=== PATIENT | female | born 1990 | race African-American/Black ===

== ENCOUNTER → 2016-06-29 | Outpatient (CLI) | payer MEDICAID, OTHER, SELFPAY ==
--- NOTE | 2016-06-29 15:00 | REP ---
OBSTETRIC SONOGRAPHY: HISTORY: Supervision of for anatomy. FINDINGS: Scanning through the gravid uterus demonstrates a viable single intrauterine gestation in a cephalic lie. motion is observed and heart rate is recorder 141 beats per minute. A posterior grade 0 placenta is seen without evidence of previa or abruption. Amniotic fluid is subjectively normal. Closed cervical length is 3.1 cm. No extrauterine abnormality is observed. There is an echogenic focus in the left ventricle likely chordae tendineae. Left ventricular cardiac outflow tract view is less than optimally seen as is four-chamber heart view. The following additional anatomic structures are identified and felt to be sonographically unremarkable: cranium, choroid plexus, cavum, cerebellum and posterior fossa, face and profile, lungs, right ventricular cardiac outflow tract view, diaphragm, left-sided stomach, abdominal wall cord insertion, three-vessel umbilical cord, kidneys and bladder, spine, upper and lower extremities. Biometry Chart: BPD 4.5 cm = 19 weeks 4 days HC 16.7 cm = 19 weeks 3 days AC 14.3 cm = 19 weeks 4 days FL 3.3 cm = 20 weeks 2 days HL 3.1 cm = 20 weeks 3 days CD 2.1 cm = 20 weeks 0 days HC/AC ratio normal 1.17. Cephalic index normal 0.74. Estimated weight 317 grams 0 pounds 11 ounces , 52nd percentile for 19 weeks 5 days. IMPRESSION: Viable single intrauterine gestation 19 week 6 days by today's composite sonographic criteria. DEVEN by today's sonography November 17, 2016. There is an echogenic focus in the left ventricle. Four chamber heart and left ventricular outflow tract views are less than optimally seen. The umbilical cord is seen draping across the shoulders. Signed by Abad Craft MD 06/29/2016 05:13 P
== END | disposition home or self-care (01) ==
LOC: M RAD 13:13
PROVIDERS: ATTEND Obstetrics & Gynecology
DX: Z34.82 Encounter for supervision of other normal pregnancy, second trimester (principal); Z36 Encounter for antenatal screening of mother; Z3A.19 19 weeks gestation of pregnancy

== ENCOUNTER → 2016-07-20 | Outpatient (CLI) | payer MEDICAID, OTHER, SELFPAY ==
--- NOTE | 2016-07-20 13:19 | REP ---
Clinical: Anatomical evaluation. Comparison: 06/29/2016 . Findings: Examination demonstrates a single live intrauterine in cephalic presentation. motion is identified by technologist. Placenta is noted posterior and grade zero without evidence for placenta previa or abruption. Amniotic fluid volume is normal. Cervix measures 2.9 cm in length and appears closed. No evidence for nuchal cord. Gestational age by LMP 22 weeks 5 days with DEVEN 11/18/2016 . Gestational age by current measurements 23 weeks 0 days with DEVEN 11/16/2016 . FHR equals 150 beats per minute. Estimated weight 587 grams (66 percentile). Anatomical assessment demonstrates normal structures including cranium, choroid plexus, cavum, cerebellum/posterior fossa, facial features, lungs, four-chamber heart/ventricular outflow tracts, diaphragm, stomach, cord insertion/three-vessel cord, kidneys/bladder, spine, and extremities. Echogenic focus within the left cardiac ventricle likely prominent chordae tendineae. Impression: Single live intrauterine in cephalic presentation demonstrating appropriate interval growth. Prominent chordae tendineae. Anatomical assessment is otherwise complete and normal. Signed by Wilber Ng MD 07/20/2016 01:10 P
== END ==
LOC: M RAD 11:42
PROVIDERS: ATTEND Obstetrics & Gynecology
DX: Z36 Encounter for antenatal screening of mother (principal); Z3A.23 23 weeks gestation of pregnancy

== ENCOUNTER → 2016-08-14 | Outpatient (CLI) | payer OTHER ==
[2016-08-14 16:26] LABS: MEAN CORPUSCULAR HEMOGLOBIN 29.6 pg (27.0-33.0); MEAN CORPUSCULAR HGB CONC 33.6 g/dl (32.0-36.5); RED CELL DISTRIBUTION WIDTH 12.2 % (11.5-14.5); WHITE BLOOD COUNT 10.1 K/mm3 (4.0-10.0)
== END ==
LOC: M LAB 12:54
PROVIDERS: ATTEND Obstetrics & Gynecology
DX: Z34.82 Encounter for supervision of other normal pregnancy, second trimester (principal); Z36 Encounter for antenatal screening of mother; Z3A.00 Weeks of gestation of pregnancy not specified

== ENCOUNTER 2016-10-09 00:42 | Inpatient (IN) | payer OTHER ==
[2016-10-09] VITALS (13 sets, daily range): BP systolic 117–139; BP diastolic 61–81
[2016-10-09] MEDS ORDERED: PENICILLIN G POTASSIUM IV 5 MU in D5W MINI-BAG PLUS 100 ML IV STA (01:28)
--- NOTE | 2016-10-09 02:05 | HPEPDOC ---
Obstetrical History & Physical General Date of Admission October 09, 2016 at 01:27 Primary Care Physician: DARLEEN MORROW CNM History of Present Illness Patient is a 25-year-old female who is a at 34 weeks 1 day gestation with an DEVEN of 11/08/2016 based off a first trimester ultrasound consistent with her LMP. She initiated care in her first trimester at [facility]. Her has been uncomplicated. She did have a lagging care between 15 seen weeks and 23 weeks where she wasn't seen due to insurance issues. She presents to labor and delivery tonight with complaints of leaking of fluid. She reports his occurred at 2230 on 10/08/2016. Patient reports this fluid is clear. Denies vaginal bleeding. Reports active movement. Chief Complaint: LOF, pre-term Information Provided By: Patient Age: 25 : 1 Livin Care Care: Good Care Number of Visits: 8 Dating Final EDC: Nov 08, 2016 Final EDC by: 1st trimester (US) LMP: Feb 06, 2016 EGA at Admission: 34.1 Antepartum Course Height (inches): 59 Pre- weight (lbs.): 152 Admission Weight (lbs.): 155 Change in Weight (lbs.): 3 (patient lost 10 lbs in the begining of her ) Past Medical History Past Medical History Medical History No current problems Surgical History: Denies/None Family History Significant Family History: Asthma, Cancer, Diabetes, Heart disease, Hypertension, Hyperlipidemia Social History Marital Status: Single Family situation: Spouse/partner home Psychosocial History: No pertinent psych hx * Smoker: non-smoker Alcohol: Denies Drugs: denies Abuse Violence Screening Have you been hit/kicked/slapp: No Have you been sexually assault: No Imunizations Tdap status: current Allergies Coded Allergies: No Known Drug Allergy (Verified Allergy, Unknown, 10/09/16) Physical Examination Physical Examination GENERAL: Alert and oriented times three. BREAST: . ABDOMEN: Gravid and non-tender to touch. FETUS: Is vertex (VTX) by sterile vaginal examination (SVE), fetus is vertex ( VTX) by Devan. HEART RATE: Regular rate and rhythm. LUNGS: Clear to auscultation (CTA). EXTREMITIES: No edema. : Moderate amount of clear fluid leaking from introitus. Sterile speculum exam with pooling. Nitrazine positive. Other physical findings A bedside ultrasound done confirming cephalic presentation. Largest vertical pocket of fluid noted to be 3.8. Pertinent Laboratoy Data Blood Type: A+ RBC Antibody Screen: Negative HIV: Negative Hepatitis B: Negative Rapid Plasma Reagin: Nonreactive Rubella: Immune Chlamydia/Gonorrhea: Negative Group B Streptococcus: Negative Quad Screen Test: Declined Glucose Tolerance Test: 98 Anatomy Ultrasound Ultrasound Date: Jul 20, 2016 Normal Anatomy: Yes Placenta Previa: No Vaginal Examination Dilation: None Effacement: Other (50%) Cervical Consistency: Soft Cervical Position: Anterior Presentation: Cephalic presentation Position: Vertex (occiput) Assessment Heart Rate (FHR): 140 Variability: Moderate Accelerations: Positive Decelerations: None Tocometer Contractions: Yes Frequency: other (occassional) Multi-drug resistant Organism: No history of MDRO Assessment/Plan Assessment IUP at 34 weeks 1 day gestation PPROM GBS unknown Category 1 heart rate tracing Plan Admit to labor and delivery. Dr. Calderon consulted for plan of care. Saline lock ordered per protocol. Labs per protocol. GBS obtained. Regular diet. Betamethasone intramuscular injection ordered for now and again in 24 hours. Penicillin to be started for GBS prophylaxis. Reviewed potential risks to mom and baby associated with delivering a baby with family. Plan of care reviewed with family that are necessary to decrease risks for adverse outcomes. DARLEEN MORROW CNM October 09, 2016 02:02
[2016-10-09] MEDS: BETAMETHASONE SOLUSPAN 6MG/ML INJ 5ML (J0702) IM SCH (02:10)
[2016-10-09 02:15] LABS: MEAN CORPUSCULAR HEMOGLOBIN 26.7 pg (27.0-33.0); MEAN CORPUSCULAR HGB CONC 32.1 g/dl (32.0-36.5); MEAN CORPUSCULAR VOLUME 83.2 fl (80.0-96.0); RED CELL DISTRIBUTION WIDTH 13.4 % (11.5-14.5); WHITE BLOOD COUNT 10.9 K/mm3 (4.0-10.0)
[2016-10-09] MEDS: PENICILLIN G POTASSIUM IV 2.5 MU in D5W 100 ML IV SCH ×5 (05:59→22:06)
[2016-10-09] MEDS ORDERED: OXYTOCIN 30 UNITS IN 0.9% NaCl 500ML IV BAG (J2590) As Ordered ONE (16:23)
--- NOTE | 2016-10-09 18:31 | REP ---
OB ULTRASOUND: REASON: Reason assess amniotic fluid. Multiple ultrasonographic images of the gravid uterus show a single living intrauterine gestation in the cephalic presentation. Doppler interrogation of the heart shows a heart rate of 132 beats per minute. The subjective aminotic fluid volume is decreased. The calculated amniotic fluid index is 4.1 within expected range of 8.0 -24.8. Doppler interrogation of the umbilical arteries shows an AB ratio of 3.02. This is just outside the upper limit of normal which is 3.00. IMPRESSION: Limited OB ultrasound as described above. There is evidence of oligohydramnios. Signed by Silvano Vasquez DO 10/09/2016 07:20 P
[2016-10-09] MEDS ORDERED: miSOPROStol 50 MCG 1/2 TAB (S0191) PO SCH ×2 (18:45)
[2016-10-09] MEDS ORDERED: TERBUTALINE SULFATE 1 MG/ML VIAL (J3105) As Ordered ONE (19:15)
[2016-10-09] MEDS ORDERED: ONDANSETRON 4MG/2ML VIAL (J2405) As Ordered ONE (23:39)
[2016-10-09] MEDS ORDERED: ONDANSETRON 4MG/2ML VIAL (J2405) IV ONE (23:45)
[2016-10-09] MEDS ORDERED: PROMETHAZINE INJ 25 MG/ML VIAL (J2550) IV PRN (23:45)
[2016-10-09] MEDS ORDERED: BUTORPHANOL 2 MG/ML INJ (J0595) IV PRN (23:45)
[2016-10-10] VITALS (23 sets, daily range): BP systolic 102–173; BP diastolic 53–77
[2016-10-10] MEDS ORDERED: FENTANYL 2MCG/ML ROPIVACAINE 0.2% IN 0.9% NACL 200ML IVBAG As Ordered ONE (00:02)
[2016-10-10] MEDS ORDERED: EPIDURAL/PCA KEYS XX PRN (00:35)
[2016-10-10] MEDS ORDERED: NALOXONE INJ 0.4 MG/1 ML VIAL (J2310) IV PRN (00:35)
[2016-10-10] MEDS ORDERED: REFRIGERATOR IV KEYS XX PRN (00:35)
[2016-10-10] MEDS ORDERED: EPIDURAL COMMENT XX SCH (00:35)
[2016-10-10] MEDS ORDERED: FENTANYL/ROPIVACAINE/NACL BAG 200 ML EPIDURAL SCH (00:35)
[2016-10-10] MEDS ORDERED: diphenhydrAMINE INJ 50MG/ML VIAL (J1200) IV PRN (00:35)
[2016-10-10] MEDS ORDERED: LACTATED RINGER'S 1000 ML IV PRN (00:35)
[2016-10-10] MEDS ORDERED: ONDANSETRON 4MG/2ML VIAL (J2405) IV PRN (00:35)
[2016-10-10] MEDS ORDERED: ePHEDrine SULFATE 25 MG/5 ML(5MG/ML) SYRINGE IV PRN (00:35)
[2016-10-10] MEDS: PENICILLIN G POTASSIUM IV 2.5 MU in D5W 100 ML IV SCH ×2 (01:44→06:03)
[2016-10-10] MEDS: BETAMETHASONE SOLUSPAN 6MG/ML INJ 5ML (J0702) IM SCH (01:45)
[2016-10-10] MEDS ORDERED: LR 1,000 ML IV SCH (05:24)
[2016-10-10] MEDS ORDERED: TERBUTALINE SULFATE 1 MG/ML VIAL (J3105) SC ONE (05:30)
[2016-10-10] MEDS ORDERED: OXYTOCIN DRIP 30 UNITS in APPROPRIATE DILUENT 1 EA IV SCH ×2 (05:30→08:16)
[2016-10-10 06:20] LABS: BASO % 0.1 % (0.0-1.0); EOS # 0.2 K/mm3 (0.0-0.50); EOS % 1.6 % (0.0-3.0); LARGE UNSTAINED CELL # 0.1 K/mm3 (0.0-0.4); LARGE UNSTAINED CELL % 0.4 % (0.0-4.0); LYMPH # 1.2 K/mm3 (1.5-6.5); LYMPH % 7.9 % (24.0-44.0); MEAN CORPUSCULAR HEMOGLOBIN 27.7 pg (27.0-33.0); MEAN CORPUSCULAR HGB CONC 32.4 g/dl (32.0-36.5); MEAN CORPUSCULAR VOLUME 85.4 fl (80.0-96.0); MONO # 0.5 K/mm3 (0.0-0.8); MONO % 2.9 % (0.0-5.0); NEUTROPHILS # 13.4 K/mm3 (1.8-7.7); NEUTROPHILS % 87.1 % (36.0-66.0); PLATELET COUNT, AUTOMATED 192 k/mm3 (150-450); RED CELL DISTRIBUTION WIDTH 13.4 % (11.5-14.5); WHITE BLOOD COUNT 15.4 K/mm3 (4.0-10.0)
--- NOTE | 2016-10-10 06:25 | IPNPDOC ---
Date Seen The patient was seen on 10/10/16 at 0530. Progress Note SUBJECTIVE: Patient is comfortable with her epidural. OBJECTIVE: FHR: 140, moderate variability, positive accelerations, no decelerations. Contractions every 1 to 5 minutes. There have been occasional episodes of prolonged decelerations randomly noted from 2 to 5 minutes that return to baseline with moderate variability and accelerations to follow. Patient had a moderate amount of bloody show. VITAL SIGNS: Please see below. ASSESSMENT: IUP at 34 weeks 3 days gestation, PPROM, Category I FHR tracing, GBS unknown. PLAN: Continue with GBS prophylaxis. Pitocin ordered with consent. Anticipate cervical change and . VS, I&O, 24H, Fishbone Vital Signs/I&O Vital Signs Date Time Temp Pulse Resp B/P (MAP) Pulse Ox O2 Delivery O2 Flow Rate FiO2 10/10/16 01:40 98.5 95 16 113/70 (84) Laboratory Data Microbiology Microbiology 10/09/16 Group B Streptococcus Screen (MARJAN), Received Pending DARLEEN MORROW CNM October 10, 2016 06:19
--- NOTE | 2016-10-10 08:15 | DNPDOC ---
[facility] Delivery Note Delivery Note Mikki is a 25-year-old now G 1 P 0101 at 34.3 weeks' gestation who presented to labor and delivery on 08/08/16 with spontaneous rupture of membranes at 2230. She received betamethasone x2 doses and GBS prophylaxis prior to delivery. She had 2 doses of cytotec and 4 mu of Pitocin. She obtained an epidural for pain management. She progressed to fully dilated at 0712. [employer] notified. Patient pushed to a spontaneous vaginal delivery at 0727 to a living female in the OA position with restitution to JASWINDER. Shoulders delivered with ease and the corpus immediately followed. Baby placed on maternal abdomen active and crying. Cord clamped 2 and cut by the father of the baby. Spontaneous delivery of intact placenta with a three-vessel cord by Campbell mechanism at 0732. Uterine hemostasis achieved by rapid infusion of IV Pitocin and uterine fundal massage. The placenta was sent to pathology due to size and PPROM. Perineum and vagina inspected and found to have bilateral labial lacerations with the right side repaired with a 4. 0 Vicryl Rapide. EBL 200. 's 8/9. Weight 4 lbs. 2 oz., 1864 g. 's name is Bina and mom is . was taken to the NICU in stable condition. DARLEEN MORROW CNM October 10, 2016 08:15
[2016-10-10] MEDS ORDERED: ACETAMINOPHEN 500 MG TAB PO PRN (08:30)
[2016-10-10] MEDS ORDERED: MEASLES,MUMPS,RUBELLA VACCINE INJ (MMR-II) (90707) SC SCH (08:30)
[2016-10-10] MEDS ORDERED: METHYLERGONOVINE MALEATE 0.2 MG TAB PO PRN (08:30)
[2016-10-10] MEDS ORDERED: DOCUSATE SODIUM 100 MG CAP PO PRN (08:30)
[2016-10-10] MEDS ORDERED: ANUSOL HC CREAM 30GM TOP PRN (08:30)
[2016-10-10] MEDS ORDERED: DIBUCAINE 1% OINTMENT 30GM TOP PRN (08:30)
[2016-10-10] MEDS ORDERED: RHOGAM 300 MCG (1500 IU) INJ (J2790) IM SCH (08:30)
[2016-10-10] MEDS ORDERED: IBUPROFEN 800 MG TAB PO PRN (08:30)
[2016-10-10] MEDS: PRENATAL VITAMIN TAB PO SCH (09:18)
[2016-10-11 06:20] VITALS: BP 129/78
[2016-10-11] MEDS: PRENATAL VITAMIN TAB PO SCH (10:27)
[2016-10-11 18:42] VITALS: BP 131/74
[2016-10-12 06:10] VITALS: BP 122/71
[2016-10-12] MEDS ORDERED: PRENTAB9 PO (11:59)
[2016-10-12] MEDS ORDERED: ACET50TA PO (12:00)
[2016-10-12] MEDS ORDERED: IBUP-1114 PO (12:02)
== END 2016-10-12 15:00 | disposition home or self-care (01) | DRG 560 ==
LOC: M LDO 00:42 → M LDI 01:27 → M OBS 10-10 11:50
PROVIDERS: ADMIT Obstetrics & Gynecology; ATTEND Advanced Practice Midwife
PROC: 10E0XZZ Delivery of Products of Conception, External Approach (ICD-10-PCS; principal; 2016-10-10)
PROC: 0HQ9XZZ Repair Perineum Skin, External Approach (ICD-10-PCS; 2016-10-10)
DX: O42.013 Preterm premature rupture of membranes, onset of labor within 24 hours of rupture, third trimester (principal); O70.0 First degree perineal laceration during delivery; Z3A.34 34 weeks gestation of pregnancy; Z37.0 Single live birth

== ENCOUNTER → 2018-12-22 | Outpatient (REF) | payer MEDICAID ==
[~2018-12-22] MED LIST: IBUP-1114 PO; MAPA500T2 PO; PRENTAB9 PO
[2018-12-22 17:18] LABS: HEMATOCRIT 38.2 % (36.0-47.0); HEMOGLOBIN 12.7 g/dl (12.0-15.5); MEAN CORPUSCULAR HEMOGLOBIN 28.8 pg (27.0-33.0); MEAN CORPUSCULAR HGB CONC 33.2 g/dl (32.0-36.5); MEAN CORPUSCULAR VOLUME 86.6 fl (80.0-96.0); PLATELET COUNT, AUTOMATED 241 10^3/uL (150-450); RED BLOOD COUNT 4.41 10^6/uL (4.00-5.40); WHITE BLOOD COUNT 8.4 10^3/uL (4.0-10.0)
[2018-12-22 20:16] LABS: HCG, SERUM QUANTITATIVE 88500 MIU/ML
[2018-12-23 09:29] LABS: RUBELLA IgG QUALITATIVE IMMUNE (IMMUNE)
[2018-12-23 09:58] LABS: HEPATITIS C VIRUS ABY INDEX 0.1 INDEX (<0.8); HIV 1&2 SCREEN CENTAUR NEGATIVE (NEGATIVE)
== END ==
LOC: M LAB REF 16:51
PROVIDERS: ATTEND Obstetrics & Gynecology
DX: O36.80X0 Pregnancy with inconclusive fetal viability, not applicable or unspecified (principal); Z32.01 Encounter for pregnancy test, result positive

== ENCOUNTER 2018-12-30 21:37 | Emergency (ER) | payer MEDICAID ==
[~2018-12-30] VITALS: Ht 149.9 cm; Wt 75.0 kg
[2018-12-30 22:12] LABS: BASO % 0.3 % (0.0-1.0); EOS % 0.4 % (0.0-3.0); HEMATOCRIT 40.8 % (36.0-47.0); HEMOGLOBIN 13.6 g/dl (12.0-15.5); LYMPH # 3.3 10^3/uL (1.5-6.5); LYMPH % 31.1 % (24.0-44.0); MEAN CORPUSCULAR HEMOGLOBIN 29.3 pg (27.0-33.0); MEAN CORPUSCULAR HGB CONC 33.3 g/dl (32.0-36.5); MEAN CORPUSCULAR VOLUME 87.9 fl (80.0-96.0); MONO # 0.9 10^3/uL (0.0-0.8); MONO % 8.9 % (0.0-5.0); NEUTROPHILS # 6.2 10^3/uL (1.8-7.7); NEUTROPHILS % 58.9 % (36.0-66.0); PLATELET COUNT, AUTOMATED 307 10^3/uL (150-450); RED BLOOD COUNT 4.64 10^6/uL (4.00-5.40); WHITE BLOOD COUNT 10.5 10^3/uL (4.0-10.0)
[2018-12-30 22:35] LABS: ALBUMIN 3.6 GM/DL (3.2-5.2); ALT/SGPT 59 U/L (12-78); BILIRUBIN,DIRECT 0.2 MG/DL (0.0-0.2); BILIRUBIN,TOTAL 0.5 MG/DL (0.2-1.0); BLOOD UREA NITROGEN 9 MG/DL (7-18); CARBON DIOXIDE LEVEL 25 MEQ/L (21-32); CHLORIDE LEVEL 104 MEQ/L (98-107); CREATININE FOR GFR 0.68 MG/DL (0.55-1.30); GLOMERULAR FILTRATION RATE > 60.0 (>60); GLUCOSE, FASTING 87 MG/DL (70-100); LIPASE 73 U/L (73-393); POTASSIUM SERUM 3.6 MEQ/L (3.5-5.1); SODIUM LEVEL 137 MEQ/L (136-145); TOTAL PROTEIN 7.5 GM/DL (6.4-8.2)
[2018-12-31 00:54] VITALS: BP 139/84
[2018-12-31] MEDS ORDERED: AUGM875T28 PO (00:57)
[2018-12-31] MEDS ORDERED: ZOFR4TAB16 PO (00:57)
[2018-12-31] MEDS ORDERED: ONDANSETRON 4 MG ORAL DISINTEGRATING TAB (Q0162 PER 1MG) PO ONE (01:00)
== END 2018-12-31 01:06 | disposition home or self-care (01) ==
LOC: M ED 21:37
DX: O23.11 Infections of bladder in pregnancy, first trimester (principal); O21.9 Vomiting of pregnancy, unspecified; O99.611 Diseases of the digestive system complicating pregnancy, first trimester; Z3A.11 11 weeks gestation of pregnancy; Z79.899 Other long term (current) drug therapy
CPT/HCPCS: 80048; 80076; 81001; 83690; 85025; 87086; 99284; Q0162

== ENCOUNTER → 2019-02-14 | Outpatient (REF) | payer MEDICAID ==
[~2019-02-14] MED LIST changes: +AUGM875T28 PO; +ZOFR4TAB16 PO
== END ==
LOC: M LAB REF 12:42
PROVIDERS: ATTEND Obstetrics & Gynecology
DX: Z34.82 Encounter for supervision of other normal pregnancy, second trimester (principal)

== ENCOUNTER → 2019-03-15 | Outpatient (REF) | payer OTHER | LOC: M LAB REF 16:15 | PROVIDERS: ATTEND Nurse Practitioner Women's Health | DX: Z34.82 Encounter for supervision of other normal pregnancy, second trimester (principal); Z3A.00 Weeks of gestation of pregnancy not specified ==

== ENCOUNTER → 2019-05-15 | Outpatient (CLI) | payer MEDICAID, OTHER ==
[2019-05-15 15:00] LABS: HEMATOCRIT 33.5 % (36.0-47.0); HEMOGLOBIN 10.9 g/dl (12.0-15.5); MEAN CORPUSCULAR HEMOGLOBIN 27.7 pg (27.0-33.0); MEAN CORPUSCULAR HGB CONC 32.5 g/dl (32.0-36.5); PLATELET COUNT, AUTOMATED 205 10^3/uL (150-450); RED BLOOD COUNT 3.94 10^6/uL (4.00-5.40); WHITE BLOOD COUNT 10.3 10^3/uL (4.0-10.0)
== END ==
LOC: M LAB 13:23
PROVIDERS: ATTEND Obstetrics & Gynecology
DX: Z34.82 Encounter for supervision of other normal pregnancy, second trimester (principal)

== ENCOUNTER 2020-04-26 19:39 | Emergency (ER) | payer OTHER ==
[~2020-04-26] VITALS: Ht 149.9 cm; Wt 74.1 kg
[2020-04-26] MEDS ORDERED: ESCI20TA PO (19:50)
[2020-04-26 21:31] LABS: BASO # 0.1 10^3/uL (0.0-0.2); BASO % 0.4 % (0.0-1.0); LYMPH # 1.3 10^3/uL (1.5-5.0); LYMPH % 8.3 % (24.0-44.0); MEAN CORPUSCULAR HGB CONC 31.7 g/dl (32.0-36.5); MEAN CORPUSCULAR VOLUME 85.1 fl (80.0-96.0); MONO # 0.9 10^3/uL (0.0-0.8); MONO % 5.5 % (0.0-5.0); NEUTROPHILS # 13.7 10^3/uL (1.5-8.5); NEUTROPHILS % 85.4 % (36.0-66.0); PLATELET COUNT, AUTOMATED 332 10^3/uL (150-450); RED BLOOD COUNT 4.82 10^6/uL (4.00-5.40)
[2020-04-26 21:47] LABS: BILIRUBIN,DIRECT 0.2 MG/DL (0.0-0.2); BILIRUBIN,TOTAL 0.4 MG/DL (0.2-1.0); TOTAL PROTEIN 7.9 GM/DL (6.4-8.2)
--- NOTE | 2020-04-26 22:30 | REPVR ---
PROCEDURE INFORMATION: Exam: XR Abdomen, 1 View Exam date and time: 04/26/2020 9:51 PM Age: 29 years old Clinical indication: Abdominal pain; Additional info: ? Constipation TECHNIQUE: Imaging protocol: XR of the abdomen. Views: Frontal supine view of the abdomen. 1 View. COMPARISON: No relevant prior studies available. FINDINGS: Gastrointestinal tract: Moderate colonic fecal load. No dilated small bowel loops. Bones/joints: Unremarkable. IMPRESSION: Moderate colonic fecal load. Clinical correlation with constipation. Electronically signed by: Jose Antonio Schafer On 04/26/2020 22:30:22 PM
[2020-04-26] MEDS ORDERED: MAGNESIUM CITRATE 300 ML BTL PO ONE (22:45)
[2020-04-26] MEDS ORDERED: GLYCERIN ADULT SUPP PR ONE (22:45)
[2020-04-27] MEDS ORDERED: MIRA3350 PO (00:15)
[2020-04-27] MEDS ORDERED: PYRI1TAB5 PO (00:15)
[2020-04-27] MEDS ORDERED: POTASSIUM CHLORIDE 10 MEQ SR TABLET PO ONE (00:15)
[2020-04-27] MEDS ORDERED: NITROFURANTOIN (MACROBID) 100 MG CAP PO ONE (00:15)
[2020-04-27] MEDS ORDERED: COLA100C5 PO (00:15)
[2020-04-27] MEDS ORDERED: MACR100C43 PO (00:15)
[2020-04-27 00:27] VITALS: BP 158/74
== END 2020-04-27 00:36 | disposition home or self-care (01) ==
LOC: M ED 19:39
DX: K59.00 Constipation, unspecified (principal); N30.90 Cystitis, unspecified without hematuria; E87.6 Hypokalemia; F33.9 Major depressive disorder, recurrent, unspecified; E66.9 Obesity, unspecified; Z79.899 Other long term (current) drug therapy

== ENCOUNTER → 2021-02-18 | Outpatient (REF) | payer OTHER ==
[~2021-02-18] MED LIST changes: +COLA100C5 PO; +ESCI20TA16 PO; +MACR100C43 PO; +MIRA3350 PO; +PYRI1TAB5 PO
== END ==
LOC: M LAB REF 18:05
PROVIDERS: ATTEND Obstetrics & Gynecology
DX: O92.6 Galactorrhea (principal)

== ENCOUNTER → 2021-03-24 | Outpatient (CLI) | payer OTHER ==
[~2021-03-24] MED LIST changes: +PROHANCE 279.3MG/ML 5ML VIAL As Ordered ONE
--- NOTE | 2021-03-25 22:00 | REPVR ---
PROCEDURE INFORMATION: Exam: MR Head Without and With Contrast, Sella Exam date and time: 03/24/2021 4:10 PM Age: 30 years old Clinical indication: Other: O92.6 galactorrhea e22.1 hyperprolactinemia TECHNIQUE: Imaging protocol: MR of the head without and with intravenous contrast. Exam focused on the sella. Contrast material: PROHANCE; Contrast volume: 10 ml; Contrast route: INTRAVENOUS (IV); COMPARISON: No relevant prior studies available. FINDINGS: Brain: Normal appearance of the pituitary gland. The infundibulum is midline. The optic chiasm is normal. Cavernous sinuses are normal. No intracranial hemorrhage or extra-axial fluid collection. No evidence of mass effect or midline shift. No white matter abnormalities. No restricted diffusion to suggest acute infarct. Cerebral ventricles: Ventricles, cisterns, and sulci are normal. Paranasal sinuses: Small retention cyst in the left maxillary sinus. Bones/joints: Unremarkable. IMPRESSION: No acute intracranial findings. Normal appearance of the pituitary gland. Electronically signed by: Mj Chinchilla On 03/25/2021 22:00:23 PM
== END ==
LOC: M RAD 15:08
PROVIDERS: ATTEND Obstetrics & Gynecology
DX: O92.6 Galactorrhea (principal); E22.1 Hyperprolactinemia; O99.280 Endocrine, nutritional and metabolic diseases complicating pregnancy, unspecified trimester
CPT/HCPCS: 70553; A9576

== ENCOUNTER → 2022-01-06 | Outpatient (REF) | payer OTHER ==
[~2022-01-06] MED LIST changes: -PROHANCE 279.3MG/ML 5ML VIAL As Ordered ONE
[2022-01-06 21:33] LABS: APPEARANCE, URINE CLOUDY (CLEAR); BACTERIA, URINE AUTO 1+ (NEGATIVE); BILIRUBIN, URINE AUTO NEGATIVE (NEGATIVE); BLOOD, URINE BLOOD 2+ (NEGATIVE); COLOR, URINE YELLOW (YELLOW); GLUCOSE, URINE (UA) AUTO NEGATIVE (NEGATIVE); KETONE, URINE AUTO NEGATIVE (NEGATIVE); LEUKOCYTE ESTERASE, URINE AUTO 2+ (NEGATIVE); MUCUS, URINE SMALL (NEGATIVE); NITRITE, URINE AUTO POSITIVE (NEGATIVE); PROTEIN, URINE AUTO 1+ mg/dL (NEGATIVE); RBC, URINE AUTO 10 /HPF (0-3); SPECIFIC GRAVITY URINE AUTO 1.024 (1.002-1.035); SQUAMOUS EPITHELIAL CELL UR AU 10 /HPF (0-6); UROBILINOGEN, URINE AUTO 0.2 mg/dL (0.0-2.0); WBC, URINE AUTO 133 /HPF (0-3)
[2022-01-06 22:58] LABS: GC DNA AMPLIFICATION NEGATIVE (NEGATIVE)
== END ==
LOC: M LAB REF 21:15
PROVIDERS: ATTEND Physician Assistant
DX: N39.0 Urinary tract infection, site not specified (principal)

== ENCOUNTER → 2023-06-03 | Outpatient (REF) | payer OTHER, MEDICAID ==
[2023-06-03 17:04] LABS: HEMATOCRIT 39.6 % (36.0-47.0); HEMOGLOBIN 12.8 g/dl (12.0-15.5); MEAN CORPUSCULAR HEMOGLOBIN 27.9 pg (27.0-33.0); MEAN CORPUSCULAR HGB CONC 32.3 g/dl (32.0-36.5); MEAN CORPUSCULAR VOLUME 86.5 fl (80.0-96.0); PLATELET COUNT, AUTOMATED 368 10^3/uL (150-450); RED BLOOD COUNT 4.58 10^6/uL (4.00-5.40); WHITE BLOOD COUNT 9.4 10^3/uL (4.0-10.0)
[2023-06-03 18:05] LABS: HIV 1&2 SCREEN NEGATIVE (NEGATIVE)
[2023-06-03 18:13] LABS: HEPATITIS C VIRUS ABY INDEX 0.05 INDEX (<0.8)
[2023-06-03 19:38] LABS: HEMOGLOBIN A1c 5.2 % (4.0-6.0)
== END ==
LOC: M LAB REF 16:21
PROVIDERS: ATTEND Advanced Practice Midwife
DX: O36.80X0 Pregnancy with inconclusive fetal viability, not applicable or unspecified (principal); Z32.01 Encounter for pregnancy test, result positive

== ENCOUNTER → 2023-06-17 | Outpatient (CLI) | payer OTHER | LOC: M WHC 14:24 | PROVIDERS: ATTEND Obstetrics & Gynecology | DX: Z32.01 Encounter for pregnancy test, result positive (principal) ==

== ENCOUNTER 2023-12-22 08:42 | Inpatient (IN) | payer OTHER ==
[~2023-12-22] VITALS: Ht 149.9 cm; Wt 88.7 kg
[2023-12-22] VITALS (41 sets, daily range): BP systolic 74–170; BP diastolic 34–129
[2023-12-22] MEDS ORDERED: TUMS500C PO (09:06)
[2023-12-22] MEDS ORDERED: TRANEXAMIC ACID INJection 1,000 MG in NS 100 ML IV PRN (09:30)
[2023-12-22] MEDS ORDERED: OXYTOCIN DRIP 30 UNITS in IV 1 EA IV PRN (09:30)
[2023-12-22] MEDS ORDERED: CARBOPROST TROMETHAMINE 250 MCG/ML AMP IM PRN (09:30)
[2023-12-22] MEDS ORDERED: OXYTOCIN INJ 10UNITS/ML 1ML VIAL IM PRN (09:30)
[2023-12-22] MEDS ORDERED: METHYLERGONOVINE MALEATE 0.2MG/ML 1ML VIAL IM PRN (09:30)
[2023-12-22] MEDS ORDERED: LIDOCAINE 1% MDV 20ML VIAL INFIL PRN (09:30)
[2023-12-22] MEDS: BETAMETHASONE SOLUSPAN 6MG/ML 5ML VIAL IM SCH (09:56)
[2023-12-22 10:38] LABS: HEMATOCRIT 32.9 % (36.0-47.0); HEMOGLOBIN 10.4 g/dl (12.0-15.5); MEAN CORPUSCULAR HEMOGLOBIN 25.6 pg (27.0-33.0); MEAN CORPUSCULAR HGB CONC 31.6 g/dl (32.0-36.5); PLATELET COUNT, AUTOMATED 202 10^3/uL (150-450); RED BLOOD COUNT 4.06 10^6/uL (4.00-5.40); WHITE BLOOD COUNT 9.7 10^3/uL (4.0-10.0)
[2023-12-22] MEDS: LR 1,000 ML IV SCH (11:17)
[2023-12-22] MEDS: PENICILLIN G POTASSIUM 5 MU IV 5 MU in D5W MINI-BAG PLUS 100 ML IV STA (11:17)
[2023-12-22] MEDS: OXYTOCIN DRIP 30 UNITS in IV 1 EA IV SCH (11:19)
[2023-12-22 11:45] LABS: HEPATITIS C VIRUS ABY INDEX < 0.02 INDEX (<0.8)
[2023-12-22] MEDS: PEN G POT 3,000,000 UNIT/50 ML 3,000,000 UNIT in IV 1 EA IV SCH (15:10)
[2023-12-22] MEDS ORDERED: diphenhydrAMINE 50MG/ML VIAL IV PRN (15:40)
[2023-12-22] MEDS ORDERED: NALOXONE INJ 0.4MG/1ML VIAL IV PRN (15:40)
[2023-12-22] MEDS ORDERED: EPIDURAL/PCA KEYS XX PRN (15:40)
[2023-12-22] MEDS ORDERED: ONDANSETRON 4MG 2ML VIAL IV PRN (15:40)
[2023-12-22] MEDS ORDERED: FENTANYL 2MCG/ML ROPIVACAINE 0.2% IN 0.9% NACL 100ML IVBAG As Ordered ONE (15:43)
[2023-12-22] MEDS: FENTANYL/ROPIVACAINE/NACL BAG 100 ML EPIDURAL SCH (15:57)
[2023-12-22] MEDS: ePHEDrine SULFATE 25 MG/5 ML(5MG/ML) SYRINGE IVP PRN (16:21)
[2023-12-22] MEDS: LR 500 ML IV PRN (16:22)
[2023-12-22] MEDS ORDERED: DOCUSATE SODIUM 100MG CAPSULE PO PRN (18:10)
[2023-12-22] MEDS ORDERED: IBUPROFEN 600MG TAB PO PRN (18:10)
[2023-12-22] MEDS ORDERED: RHO(D) IMMUNE GLOBULIN/MALTOSE 500MCG(2500IU)/2.2ML VIAL (WINRHO) IM SCH (18:10)
[2023-12-22] MEDS ORDERED: DIBUCAINE 1% OINTMENT 30GM TOP PRN (18:10)
[2023-12-22] MEDS ORDERED: METHYLERGONOVINE MALEATE 0.2 MG TAB PO PRN (18:10)
[2023-12-22] MEDS ORDERED: ACETAMINOPHEN TAB 650MG DOSE (2X325MG) PO PRN (18:10)
[2023-12-23] MEDS: ACETAMINOPHEN 500 MG TAB PO PRN (04:34)
[2023-12-23 06:02] VITALS: BP 122/73; O2SAT 99
[2023-12-23] MEDS: PRENATAL VITAMINS CHEWABLE TABLET PO SCH (09:00)
[2023-12-23 19:10] VITALS: BP 137/66; O2SAT 99
[2023-12-23] MEDS: IBUPROFEN 800 MG TAB PO PRN (20:24)
[2023-12-24] MEDS ORDERED: PRENATAL VITAMINS CHEWABLE TABLET As Ordered ONE (08:36)
[2023-12-24] MEDS ORDERED: DOCUSATE SODIUM 100MG CAPSULE As Ordered ONE (08:37)
[2023-12-24] MEDS ORDERED: MEASLES,MUMPS,RUBELLA VACCINE INJ (MMR-II) SC.IMMUN ONE (09:00)
== END 2023-12-24 12:00 | disposition home or self-care (01) | DRG 560 ==
LOC: M LDO 08:42 → M LDI 09:20 → M OBS 21:35
PROVIDERS: ADMIT Advanced Practice Midwife; ATTEND Advanced Practice Midwife
PROC: 10E0XZZ Delivery of Products of Conception, External Approach (ICD-10-PCS; principal; 2023-12-22)
PROC: 3E033VJ Introduction of Other Hormone into Peripheral Vein, Percutaneous Approach (ICD-10-PCS; 2023-12-22)
DX: O42.013 Preterm premature rupture of membranes, onset of labor within 24 hours of rupture, third trimester (principal); O32.6XX0 Maternal care for compound presentation, not applicable or unspecified; Z37.0 Single live birth; Z3A.35 35 weeks gestation of pregnancy

== ENCOUNTER → 2025-04-04 | Outpatient (REF) | payer OTHER, MEDICAID ==
[~2025-04-04] MED LIST changes: +TUMS500C PO
[2025-04-04 15:08] LABS: ALT/SGPT 15 U/L (7.0-40); AST/SGOT 13 U/L (<34); CALCIUM LEVEL 8.9 MG/DL (8.5-10.1); CARBON DIOXIDE LEVEL 27 MMOL/L (20-31); CHLORIDE LEVEL 107 MMOL/L (98-107); CHOLESTEROL LEVEL 168 MG/DL (<200); CHOLESTEROL RISK RATIO 2.98 (<5); CREATININE FOR GFR 0.72 MG/DL (0.55-1.30); GLOMERULAR FILTRATION RATE > 90.0 (>60); LDL CHOLESTEROL 103.9 MG/DL (<100); NON-HDL-C 111.7 MG/DL; POTASSIUM SERUM 4.2 MMOL/L (3.5-5.1); SODIUM LEVEL 142 MMOL/L (136-145); TRIGLYCERIDES LEVEL 39 MG/DL (<150)
[2025-04-04 15:11] LABS: TOTAL 25(OH) VITAMIN D 20.9 NG/ML (20.0-100.0)
[2025-04-04 15:56] LABS: ESTIMATED AVERAGE GLUCOSE 108.0 MG/DL (60-110)
== END ==
LOC: M LAB REF 14:44
PROVIDERS: ATTEND Student in an Organized Health Care Education/Training Program
DX: Z68.37 Body mass index [BMI] 37.0-37.9, adult (principal); E55.9 Vitamin D deficiency, unspecified